=== PATIENT | male | born 1985 | race Caucasian/White ===

== ENCOUNTER 2017-03-01 23:04 | Observation (INO) | payer SELFPAY ==
[~2017-03-01] VITALS: Ht 170.2 cm; Wt 76.3 kg
[2017-03-01 23:24] VITALS: BP 150/87; PULSE 93; RESP 18; TEMP 98.6; O2SAT 97
[2017-03-01] MEDS ORDERED: SODIUM CHLOR 0.9% 1000 ML INJ 1,000 ML IV SCH (23:58)
[2017-03-02] MEDS ORDERED: ONDANSETRON HCL 4 MG/2 ML VIAL IVP ONE
--- NOTE | 2017-03-02 00:03 | PD ---
HPI Chief Complaint: Abdominal Pain Time Seen by Provider: 00:02 Travel History International Travel<30 days: No Contact w/Intl Traveler<30days: No Traveled to known affect area: No History of Present Illness HPI 32-year-old male who is [place]-speaking, interpretation done by RAJAN Singletary, presents to the emergency department for evaluation of abdominal pain. Patient states he had acute onset yesterday afternoon started around his umbilicus. It progressed in intensity and eventually was his entire lower abdomen with the greatest point of pain in his right lower quadrant. He is now 8 out of 10, constant. Denies any recent illnesses areas states that he did have a fever at home. Mild nausea without vomiting. No bowel changes. Abrasion has no other symptoms to report. [facility] Past Medical History Medical History: Denies Significant Hx Diminished Hearing: No Past Surgical History Surgical History: No Previous Surgery Social History Alcohol Use: No Tobacco Use: No (never) Substance Use: No Allergies-Medications (Allergen,Severity, Reaction): Coded Allergies: No Known Allergies (Unverified , 03/01/17) Reported Meds & Prescriptions Reported Meds & Active Scripts Active No Active Prescriptions or Reported Medications Review of Systems Except as stated in HPI: all other systems reviewed are Neg Physical Exam Narrative GENERAL: Well-nourished male patient in no acute distress SKIN: Focused skin assessment warm/dry. HEAD: Atraumatic. Normocephalic. EYES: Pupils equal and round. No scleral icterus. No injection or drainage. ENT: No nasal bleeding or discharge. Mucous membranes pink and moist. NECK: Trachea midline. No JVD. CARDIOVASCULAR: Regular rate and rhythm. No murmur appreciated. RESPIRATORY: No accessory muscle use. Clear to auscultation. Breath sounds equal bilaterally. GASTROINTESTINAL: Abdomen soft, nondistended. Generalized tenderness however there is guarding with outpatient lower quadrant. Positive McBurney's. There is rebound tenderness. Hepatic and splenic margins not palpable. MUSCULOSKELETAL: No obvious deformities. No clubbing. No cyanosis. No edema. NEUROLOGICAL: Awake and alert. No obvious cranial nerve deficits. Motor grossly within normal limits. Normal speech. PSYCHIATRIC: Appropriate mood and affect; insight and judgment normal. Data Data Last Documented VS Vital Signs Date Time Temp Pulse Resp B/P Pulse Ox O2 Delivery O2 Flow Rate FiO2 03/02/17 00:27 16 99 Room Air 03/01/17 23:24 98.6 93 150/87 Orders Complete Blood Count With Diff (03/01/17 23:58) Comprehensive Metabolic Panel (03/01/17 23:58) Lipase (03/01/17 23:58) Prothrombin Time / Inr (Pt) (03/01/17 23:58) Act Partial Throm Time (Ptt) (03/01/17 23:58) Urinalysis - C+S If Indicated (03/01/17 23:58) Ct Abd/Pel W Iv Contrast(Rout) (03/01/17 23:58) Iv Access Insert/Monitor (03/01/17 23:58) Ecg Monitoring (03/01/17:58) Oximetry (03/01/17 23:58) Morphine Inj (Morphine Inj) (03/02/17 00:00) Ondansetron Inj (Zofran Inj) (03/02/17 00:00) Sodium Chlor 0.9% 1000 Ml Inj (Ns 1000 M (03/01/17 23:58) Sodium Chloride 0.9% Flush (Ns Flush) (03/02/17 00:00) Iohexol 350 Inj (Omnipaque 350 Inj) (03/02/17 00:36) Piperacil-Tazo 4.5 Gm Premix (Zosyn 4.5 (03/02/17 01:00) Sodium Chlor 0.9% 1000 Ml Inj (Ns 1000 M (03/02/17 01:00) Admit Order (Ed Use Only) (03/02/17 01:15) Vital Signs (Adult) Q4H (03/02/17 01:16) Diet Npo (03/02/17 Breakfast) Activity Oob Ad [place] (03/02/17 01:16) ^ Saline Lock (03/02/17 01:16) Resp Oxygen Jl C Titrat 1-4 L (03/02/17 ) Notify Dr: Other (03/02/17 01:16) Ondansetron Inj (Zofran Inj) (03/02/17 01:30) Sodium Chloride 0.9% Flush (Ns Flush) (03/02/17 09:00) Sodium Chloride 0.9% Flush (Ns Flush) (03/02/17 01:30) Morphine Inj (Morphine Inj) (03/02/17 01:30) Labs Laboratory Tests Test 03/01/17 23:50 White Blood Count 19.1 TH/MM3 Red Blood Count 4.93 MIL/MM3 Hemoglobin 15.8 GM/DL Hematocrit 45.9 % Mean Corpuscular Volume 93.1 FL Mean Corpuscular Hemoglobin 32.0 PG Mean Corpuscular Hemoglobin 34.4 % Concent Red Cell Distribution Width 12.8 % Platelet Count 267 TH/MM3 Mean Platelet Volume 7.8 FL Neutrophils (%) (Auto) 91.2 % Lymphocytes (%) (Auto) 4.2 % Monocytes (%) (Auto) 4.3 % Eosinophils (%) (Auto) 0.1 % Basophils (%) (Auto) 0.2 % Neutrophils # (Auto) 17.4 TH/MM3 Lymphocytes # (Auto) 0.8 TH/MM3 Monocytes # (Auto) 0.8 TH/MM3 Eosinophils # (Auto) 0.0 TH/MM3 Basophils # (Auto) 0.0 TH/MM3 CBC Comment DIFF FINAL Differential Comment Prothrombin Time 13.9 SEC Prothromb Time International 1.2 RATIO Ratio Activated Partial 43.8 SEC Thromboplast Time Sodium Level 135 MEQ/L Potassium Level 3.7 MEQ/L Chloride Level 100 MEQ/L Carbon Dioxide Level 27.8 MEQ/L Anion Gap 7 MEQ/L Blood Urea Nitrogen 6 MG/DL Creatinine 0.96 MG/DL Estimat Glomerular Filtration 92 ML/MIN Rate Random Glucose 111 MG/DL Calcium Level 9.0 MG/DL Total Bilirubin 0.7 MG/DL Aspartate Amino Transf 17 U/L (AST/SGOT) Alanine Aminotransferase 31 U/L (ALT/SGPT) Alkaline Phosphatase 71 U/L Total Protein 8.4 GM/DL Albumin 3.7 GM/DL Lipase 90 U/L [facility] Medical Decision Making Medical Screen Exam Complete: Yes Emergency Medical Condition: Yes Medical Record Reviewed: Yes Differential Diagnosis Appendicitis versus colitis versus gastroenteritis versus hernia Narrative Course 32-year-old male presents to emergency department for evaluation of abdominal pain. Patient states history and physical exam are concerning for appendicitis. Patient is with leukocytosis of 19.1 and neutrophilia 17.4. Chemistry is without acute concern. Patient is provided pain control, normal saline IV bolus, and IV Zosyn. CT imaging is consistent with appendicitis. I have discussed the patient with Dr. Gamenthaler. Patient will be admitted observation to his service. Nothing by mouth for surgical intervention in the morning. Diagnosis Primary Impression: Appendicitis, acute Qualified Code: K35.80 - Acute appendicitis, unspecified acute appendicitis type Admitting Information Admitting Physician Requests: Observation Scripts No Active Prescriptions or Reported Meds Condition: Stable Kayley Patton Mar 02, 2017 00:02
[2017-03-02] MEDS: SODIUM CHLORIDE 0.9% FLUSH 10 ML FLUSH IV FLUSH PRN ×2 (00:26→01:07)
[2017-03-02 00:27] VITALS: RESP 16; O2SAT 99
[2017-03-02 00:32] LABS: AUTOMATED NEUTROPHIL # 17.4 TH/MM3 (1.8-7.7); BASOPHIL % 0.2 % (0.0-2.0); EOSINOPHIL % 0.1 % (0.0-4.0); HEMATOCRIT 45.9 % (39.0-51.0); HEMO FLAGS DIFF FINAL; LYMPH % 4.2 % (9.0-44.0); LYMPHOCYTE # 0.8 TH/MM3 (1.0-4.8); MEAN CELL VOLUME 93.1 FL (80.0-100.0); MEAN CORPUSCULAR HGB CONC 34.4 % (32.0-36.0); MONO % 4.3 % (0.0-8.0); NEUT % 91.2 % (16.0-70.0); PLATELET COUNT 267 TH/MM3 (150-450); RED BLOOD COUNT 4.93 MIL/MM3 (4.50-5.90); RED CELL DISTRIBUTION WIDTH 12.8 % (11.6-17.2); WHITE BLOOD COUNT 19.1 TH/MM3 (4.0-11.0)
[2017-03-02] MEDS ORDERED: IOHEXOL 350 MG/ML 10 ML VIAL (for RAD DIAG) IV ONE (00:36)
[2017-03-02 00:43] LABS: APTT (PATIENT) 43.8 SEC (24.3-30.1); INTERNATIONAL NORMALIZED RATIO 1.2 RATIO; PROTHROMBIN TIME - PATIENT 13.9 SEC (9.8-11.6)
--- NOTE | 2017-03-02 00:48 | RADRPT ---
EXAM DATE/TIME: 03/02/2017 00:33 [place] COMPARISON: No previous studies available for comparison. INDICATIONS : Lower abdominal pain with fever. IV CONTRAST: 98 cc Omnipaque 350 (iohexol) IV ORAL CONTRAST: No oral contrast ingested. RADIATION DOSE: 5.91 CTDIvol (mGy) MEDICAL HISTORY : None SURGICAL HISTORY : None. ENCOUNTER: Initial ACUITY: 1 day PAIN SCALE: 8/10 LOCATION: Bilateral lower quadrant TECHNIQUE: Volumetric scanning of the abdomen and pelvis was performed. Using automated exposure control and ad justment of the mA and/or kV according to patient size, radiation dose was kept as low as reasonably achievable to obtain optimal diagnostic quality images. DICOM format image data is available electro nically for review and comparison. FINDINGS: LOWER LUNGS: The visualized lower lungs are clear. LIVER: Homogeneous density without lesion. There is no dilation of the biliary tree. No calcified gallston es. SPLEEN: Normal size without lesion. PANCREAS: Within normal limits. KIDNEYS: Normal in size and shape. There is no mass, stone or hydronephrosis. ADRENAL GLANDS: Within normal limits. VASCULAR: There is no aortic aneurysm. BOWEL/MESENTERY: The appendix is fluid-filled with marked periappendiceal stranding consistent with appendicitis. Ther e is some trace amount of free fluid inferior to the appendix. No drainable collection or abscess is identified. ABDOMINAL WALL: Within normal limits. RETROPERITONEUM: There is no lymphadenopathy. BLADDER: No wall thickening or mass. REPRODUCTIVE: Within normal limits. INGUINAL: There is no lymphadenopathy or hernia. MUSCULOSKELETAL: Within normal limits for patient age. CONCLUSION: The appendix is fluid-filled with marked periappendiceal stranding consistent with appendicitis. Ther e is some trace amount of free fluid inferior to the appendix. No drainable collection or abscess is identified. Vance Rievra MD on March 02, 2017 at 0:46 Board Certified Radiologist. This report was verified electronically.
[2017-03-02 01:00] LABS: ALT (GPT) 31 U/L (12-78); ANION GAP 7 MEQ/L (5-15); AST (GOT) 17 U/L (15-37); BICARBONATE 27.8 MEQ/L (21.0-32.0); BLOOD UREA NITROGEN 6 MG/DL (7-18); CHLORIDE 100 MEQ/L (98-107); GLOMERULAR FILTRATION RATE 92 ML/MIN (>89); POTASSIUM 3.7 MEQ/L (3.5-5.1); SODIUM (NA) 135 MEQ/L (136-145)
[2017-03-02] MEDS ORDERED: SODIUM CHLOR 0.9% 1000 ML INJ 1,000 ML IV ONE (01:00)
[2017-03-02] MEDS ORDERED: PIPERACIL-TAZO 4.5 GM PREMIX 100 ML IV ONE (01:00)
[2017-03-02 01:02] LABS: ALKALINE PHOSPHATASE 71 U/L (45-117); TOTAL BILIRUBIN ADULT 0.7 MG/DL (0.2-1.0)
[2017-03-02] MEDS ORDERED: ONDANSETRON HCL 4 MG/2 ML VIAL IV PRN ×2 (01:30→07:30)
[2017-03-02] MEDS ORDERED: MORPHINE SULFATE 4 MG/ML INJ IV PUSH ONE ×2 (01:30)
[2017-03-02] MEDS ORDERED: SODIUM CHLORIDE 0.9% FLUSH 10 ML FLUSH IVF PRN (01:30)
[2017-03-02 01:35] VITALS: BP 144/80; PULSE 82; RESP 18; O2SAT 99
[2017-03-02 02:49] VITALS: BP 134/78; PULSE 92; RESP 19; TEMP 98.4; O2SAT 97
[2017-03-02] MEDS ORDERED: BUPIVACAINE HCL PF 0.25% 30 ML VIAL ONE (05:37)
[2017-03-02] MEDS ORDERED: fentaNYL CITRATE 250 MCG/5 ML AMP ONE (05:47)
[2017-03-02] MEDS ORDERED: ACETAMINOPHEN 1000 MG/100 ML VIAL IV ONE (06:36)
[2017-03-02] MEDS ORDERED: SODIUM CHLOR 0.9% 1000 ML INJ 1,000 ML IV SCH (07:18)
[2017-03-02] MEDS ORDERED: KETOROLAC TROMETHAMINE 30 MG/ML (IVP) VIAL IVP PRN (07:30)
[2017-03-02] MEDS ORDERED: SODIUM CHLORIDE 0.9% FLUSH 10 ML FLUSH IV FLUSH PRN (07:30)
[2017-03-02] MEDS ORDERED: Post-op Orders (for Pharmacy) MISC XX ONE (07:30)
[2017-03-02] MEDS ORDERED: ACETAMINOPHEN/HYDROcodone 325 MG/5 MG TAB PO PRN ×2 (07:30)
[2017-03-02] MEDS ORDERED: IBUPROFEN 600 MG TAB PO PRN (07:30)
[2017-03-02] MEDS ORDERED: MORPHINE SULFATE 4 MG/ML INJ IV PRN (07:30)
[2017-03-02] MEDS: PIPERACIL-TAZO 3.375 GM PREMIX 50 ML IV SCH ×2 (07:38→13:30)
[2017-03-02] MEDS ORDERED: DO NOT ADM ANY ANTICOAGULANT DRUGS PRN (07:45)
[2017-03-02 08:00] VITALS: BP 108/57; PULSE 88; RESP 18; TEMP 97.8; O2SAT 97
--- NOTE | 2017-03-02 08:46 | MH ---
cc: LEYDAKADIEDIXIE VENTURA DATE OF ADMISSION: 03/02/2017 CHIEF COMPLAINT Acute appendicitis. HISTORY OF PRESENT ILLNESS The patient is a 32-year-old male, [id number], who developed 24-hours of right lower quadrant pain and presented to [facility]. The patient states that he has never had pain like this prior and located locally into the right lower quadrant. The patient underwent evaluation of laboratory values and showed a leukocytosis and CT scan showed significant inflammation around the appendix concerning for acute appendicitis and surgery was consulted. REVIEW OF SYSTEMS 12-point review of systems conducted with the patient is negative except for pertinent positive as mentioned above in history of present illness. Of note, manager of medical was used for evaluation. PAST MEDICAL HISTORY None. PAST SURGICAL HISTORY None. ALLERGIES NO KNOWN DRUG ALLERGIES. MEDICATIONS None. SOCIAL HISTORY The patient does not use illicit drugs or tobacco. FAMILY HISTORY Noncontributory. PHYSICAL EXAMINATION VITAL SIGNS: Blood pressure rate within normal limits. The patient has low grade fever. GENERAL: The patient is a well-developed, well-nourished male no acute distress, does not appear acute or chronically ill. HEENT: Head is normocephalic, atraumatic. Pupils round and reacting to accommodation and light. Sclerae is anicteric. Mucous membranes are moist. NECK: Supple without JVD. LUNGS: Clear to auscultation bilaterally. Nonlabored breathing pattern. HEART: Regular rate and rhythm. PMI is nondisplaced. ABDOMEN: Normal bowel sounds, soft, tender to palpation in the right lower quadrant with focal peritonitis. No diffuse peritonitis. No clubbing, cyanosis or edema. NEUROLOGIC: The patient is oriented x3. Nonfocal peripheral exam. Cranial nerves II-XII are grossly intact. ASSESSMENT AND PLAN The patient is a 32-year-old male with acute appendicitis. I used a aircraft time clerk to discuss the diagnosis and to recommend laparoscopic appendectomy urgently. I explained the risks, benefits, and alternatives to the patient. They agree to undergo the procedure and informed consent was documented. We will proceed to the operating room at next available time based on operating room schedule later this morning. We will continue antibiotics, n.p.o. and IV fluids and pain medications, and admit the patient. MD YANA LinkG/TLL /8:12 AM 8:31 AM
[2017-03-02] MEDS ORDERED: SODIUM CHLORIDE 0.9% FLUSH 10 ML FLUSH IV FLUSH SCH ×2 (09:00)
[2017-03-02 12:00] VITALS: BP 120/75; PULSE 101; RESP 18; TEMP 100; O2SAT 99
[2017-03-02] MEDS ORDERED: CIPR500T2 PO (12:35)
[2017-03-02] MEDS ORDERED: NEOSTIGMINE 3 MG/3 ML SYR IV ONE (13:11)
[2017-03-02] MEDS ORDERED: PROPOFOL 200 MG/20 ML AMP IV ONE (13:11)
[2017-03-02] MEDS ORDERED: ONDANSETRON HCL 4 MG/2 ML VIAL IV PUSH ONE (13:11)
--- NOTE | 2017-03-04 12:50 | MP ---
cc: DIXIE VASQUES DATE OF SURGERY: 03/02/2017 PREOPERATIVE DIAGNOSIS Acute appendicitis. POSTOPERATIVE DIAGNOSIS Acute uncomplicated appendicitis. ATTENDING SURGEON Dixie Vasques MD [employer] Staff. ANESTHESIA General and local anesthetic. BLOOD LOSS 10 ccs. FINDINGS Acute suppurative appendicitis without gangrene or perforation. COMPLICATIONS None. INDICATIONS FOR PROCEDURE The patient is a 32-year-old male with 24-hours of right lower quadrant pain and CT scan showing inflammation around his appendix. PROCEDURE The patient was taken to the operating room and placed in the supine position, placed under general endotracheal anesthesia. The abdomen was prepped and draped in sterile fashion. Time-out was performed. The abdomen was entered through a Martinez technique just below the umbilicus. Local anesthetic was used at this site as well as all port sites. We directly visualized the abdominal cavity and placed a 10 mm port under visualization. I surveyed the abdomen without any evidence of complication from our entry. We placed a 5-mm port in the left lower quadrant and a 5 mm port in the suprapubic position under direct visualization. I relocated the omentum to the right lower quadrant to visualize the suppurative appendix and it was not ruptured and not gangrene in the right lower quadrant. We lysed some acute inflammatory adhesions and able to mobilize the appendix up. There was a very small appendiceal mesentery right along the base of the appendix. We used echelon GI60 laparoscopic stapler to divide the base of the appendix and the mesentery with one fire of the stapler. Then had excellent closure of healthy pink tissue as well as no bleeding from the mesentery. We removed the appendix and the appendical mesentery in one piece with EndoCatch bag through the periumbilical port. We then used a suction-director of loss prevention to irrigate out the pelvis , right lower quadrant and right upper quadrant thoroughly until all suctioning was clear. We had no evidence of any complications, no bleeding, no leak at our staple line. We then placed the omentum back in the right lower quadrant. At this point in time we removed all ports under direction of the laparoscope and expressed pneumoperitoneum. We had no evidence of any other intraabdominal pathology. We then closed the fascia of the 10-mm port with a [id number] 0 Vicryl suture. We closed the skin of all port sites with Monocryl and Dermabond. The patient was discontinued from anesthesia and taken to the PACU in stable condition. The patient tolerated the procedure well. No apparent complications. All counts were correct. I was present and scrubbed for the entire procedure. MD LUCIO Link/THOMAS /8:15 AM /12:43 PM MTDTaylor
== END 2017-03-02 17:13 | disposition home or self-care (01) ==
LOC: NEPD 23:04 → NEDA 03-02 01:17 → EDBD 03-02 01:17 → NEPFCDU 03-02 02:43 → N06B 03-02 07:25 → N06A 03-02 08:13
PROVIDERS: ADMIT Surgery; ATTEND Surgery
PROC: 0DTJ4ZZ Resection of Appendix, Percutaneous Endoscopic Approach (ICD-10-PCS; principal; 2017-03-01)
DX: K35.80 Unspecified acute appendicitis (principal)
CPT/HCPCS: 01922; 44970; 74177; 80053; 83690; 85025; 85610; 85730; 88304; 96361; 96374; 96375; 99285; G0378; J0131; J1885; J2270; J2405; J2543; J2710; J3010; J7030; Q9967